=== PATIENT | male | born 1975 | race Caucasian/White ===

== ENCOUNTER → 2016-04-30 | Outpatient (CLI) | payer BC | END | disposition home or self-care (01) | LOC: GMAL 10:40 | PROVIDERS: ATTEND Family Medicine | DX: E55.9 Vitamin D deficiency, unspecified (principal); R53.82 Chronic fatigue, unspecified ==

== ENCOUNTER → 2018-12-08 | Outpatient (CLI) | payer OTHER | LOC: GMAL 10:33 | PROVIDERS: ATTEND Family Medicine | DX: Z00.01 Encounter for general adult medical examination with abnormal findings (principal); E29.9 Testicular dysfunction, unspecified ==

== ENCOUNTER → 2020-03-15 | Outpatient (CLI) | payer OTHER | LOC: GMAL 12:32 | PROVIDERS: ATTEND Family Medicine | DX: D51.8 Other vitamin B12 deficiency anemias (principal); E29.9 Testicular dysfunction, unspecified; E55.9 Vitamin D deficiency, unspecified ==